=== PATIENT | female | born 1970 | race Caucasian/White ===

== ENCOUNTER 2017-12-04 15:08 | Emergency (ER) | payer OTHER ==
[~2017-12-04] VITALS: Ht 162.6 cm; Wt 50.3 kg
[~2017-12-04 15:08] MED LIST: ADAL40PE2 SQ; ALPR0.5T PO; ALPR1TAB2 PO; AZAT50TA PO; BUDE3CAP2 PO; COLE1TAB2 PO; FLUO20CA16 PO; LAMO200T2 PO; OXYB5TAB7 PO; PANT40TA3 PO; PROAIR HFA8.5 GM IH; QUET100T4 PO; SUCR1TAB35 PO
[2017-12-04 15:40] VITALS: BP 99/64
--- NOTE | 2017-12-04 15:48 | PHYS DOC ---
Past Medical History Past Medical History: Anxiety, Bipolar, Depression Additional Past Medical Histor: ML Past Surgical History: , Hysterectomy Alcohol Use: Rarely Drug Use: None Adult General Chief Complaint Chief Complaint: MECHANICAL FALL HPI HPI Patient is a 47 year old female presents to the ED complaining of fall times one day ago. Patient states that she got up in the middle of the night and tripped and fell. Complains of pain to right fingers and left knee. Describes the pain as sharp. Rates the pain as 7 out of 10. Denies LOC, vision changes, nausea/vomiting, neck injury, weakness, chest pain, shortness of breath, use of blood thinners or dizziness. Review of Systems Review of Systems Constitutional: Denies fever or chills [] Respiratory: Denies cough or shortness of breath [] Cardiovascular: No additional information not addressed in HPI [] GI: Denies abdominal pain, nausea, vomiting, bloody stools or diarrhea [] : Denies dysuria or hematuria [] Musculoskeletal: Complains of knee pain and right finger pain. Denies back pain. Integument: Denies rash or skin lesions [] Neurologic: Denies headache, focal weakness or sensory changes [] All other systems were reviewed and found to be within normal limits, except as documented in this note. Current Medications Current Medications Current Medications Medications (Trade) Dose Ordered Sig/Clarita Start Time Stop Time Status Last Admin Dose Admin Ibuprofen (Motrin) 800 mg 1X ONCE 12/04/17 16:45 12/04/17 16:46 DC 12/04/17 16:47 800 MG Allergies Allergies Allergies Coded Allergies Type Severity Reaction Last Updated Verified codeine Allergy Intermediate 06/24/15 Yes Physical Exam Physical Exam Constitutional: Well developed, well nourished, no acute distress, non-toxic appearance. [] HENT: Normocephalic, atraumatic Neck: Normal range of motion, no tenderness, supple, no stridor. [] Cardiovascular:Heart rate regular rhythm, no murmur [] Lungs & Thorax: Bilateral breath sounds clear to auscultation [] Abdomen: Bowel sounds normal, soft, no tenderness, no masses, no pulsatile masses. [] Skin: Warm, dry, no erythema, no rash. [] Back: No tenderness, no CVA tenderness. [] Extremities: mild left anterior knee and right 4/5th finger tenderness, no cyanosis, no clubbing, ROM intact, no edema. [] Neurologic: Alert and oriented X 3, normal motor function, normal sensory function, no focal deficits noted. [] Psychologic: Affect normal, judgement normal, mood normal. [] Current Patient Data Vital Signs Vital Signs Date Time Temp Pulse Resp B/P (MAP) Pulse Ox O2 Delivery O2 Flow Rate FiO2 12/04/17 15:40 99.0 72 16 99/64 (76) 99 Room Air 99.0 EKG EKG [] Radiology/Procedures Radiology/Procedures PROCEDURE: KNEE LEFT 3V Left knee, 3 views, 12/04/2017: HISTORY: Fall, pain No fracture or dislocation is identified. There is a suggestion of a small joint effusion. IMPRESSION: No acute bony abnormality is detected. Right hand, 3 views, 12/04/2017: Injury No fracture or dislocation is identified. The soft tissues are unremarkable. IMPRESSION: No acute right hand abnormality is detected. [] Course & Med Decision Making Course & Med Decision Making Pertinent Labs and Imaging studies reviewed. (See chart for details) []Discussed imaging findings with patient. Patient's pain improved. States she is much better. Patient able to ambulate without assistance. Discussed follow- up with orthopedics if pain persists. Provided contact information/education. Discussed reasons to return to the ED. Patient understands and agrees with plan. Dragon Disclaimer Dragon Disclaimer This electronic medical record was generated, in whole or in part, using a voice recognition dictation system. Departure Departure Impression: Primary Impression: Knee pain Additional Impression: Finger sprain Disposition: 01 HOME, SELF-CARE Condition: IMPROVED Referrals: MICHELLE SERRANO MD (PCP) EN ALEJANDRO MD Patient Instructions: Finger Sprain, Knee Sprain Problem Qualifiers HINA MISTYR Dec 04, 2017 15:48
[2017-12-04] MEDS ORDERED: IBUPROFEN 800 MG TABLET. PO ONE (16:45)
--- NOTE | 2017-12-04 16:49 | RAD ---
Left knee, 3 views, 12/04/2017: HISTORY: Fall, pain No fracture or dislocation is identified. There is a suggestion of a small joint effusion. IMPRESSION: No acute bony abnormality is detected. Right hand, 3 views, 12/04/2017: Injury No fracture or dislocation is identified. The soft tissues are unremarkable. IMPRESSION: No acute right hand abnormality is detected. Electronically signed by: Brayden Keith MD (12/04/2017 4:45 PM) [facility]
== END 2017-12-04 17:24 | disposition home or self-care (01) ==
LOC: ER 15:08
DX: S63.615A Unspecified sprain of left ring finger, initial encounter (principal); S63.617A Unspecified sprain of left little finger, initial encounter; M25.562 Pain in left knee; F31.9 Bipolar disorder, unspecified; K50.90 Crohn's disease, unspecified, without complications; Z88.5 Allergy status to narcotic agent; W01.0XXA Fall on same level from slipping, tripping and stumbling without subsequent striking against object, initial encounter; Y93.89 Activity, other specified; Y99.8 Other external cause status; Y92.89 Other specified places as the place of occurrence of the external cause
CPT/HCPCS: 73130; 73562; 99284